=== PATIENT | female | born 1985 | race African-American/Black ===

== ENCOUNTER 2017-02-15 19:27 | Emergency (ER) | payer OTHER ==
[2017-02-15 19:40] VITALS: RESP 16
[2017-02-15] MEDS ORDERED: METOCLOPRAMIDE 5 MG/ML 2 ML VIAL IVP STA (20:18)
[2017-02-15] MEDS ORDERED: SODIUM CHLORIDE 0.9% 1,000 ML IV STA (20:18)
[2017-02-15] MEDS ORDERED: diphenhydrAMINE 50 MG/ML 1 ML VIAL IVP STA (20:18)
--- NOTE | 2017-02-15 20:20 | ED ---
Abdominal Pain HPI - General Chief Complaint: Abdominal Pain Stated Complaint: Abd Pain Time Seen by Provider: 02/15/17 19:54 Source: patient, RN notes reviewed, old records reviewed Mode of arrival: ambulatory Limitations: no limitations - History of Present Illness Initial Comments: His is 32-year-old feel presenting to [facility] chief complaint of dysuria for the past 2 days. She reports that her urinalysis had a foul swelling odor to it. She denies any vaginal discharge. She is currently 15 weeks . 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 Patient states that she's also had some cramping up towards her back. She reports she noticed blood in her urine. Denies any history of kidney stones. Patient states that she is also feeling fatigued and nauseated today. Denies any known fever but states she feels chilled. Patient is denying discharge or bleeding.Patient denies any recent fever, chills, shortness of breath, chest pain, nausea vomiting, numbness or tingling, constipation or diarrhea, headaches or visual changes, or any other current symptoms - Related Data Home Medications Medication Instructions Recorded Confirmed Zli-Clyk-Uksma Acid 1 cap PO DAILY 02/15/17 02/15/17 [-U Capsule (formulary)] Previous Rx's Medication Instructions Recorded Nitrofurantoin Monohyd/M-Cryst 100 mg PO Q12HR #14 cap 02/15/17 [Macrobid] Allergies Allergy/AdvReac Type Severity Reaction Status Date / Time amoxicillin [Amoxicillin] Allergy Rash/Hives Verified 02/15/17 20:05 ampicillin Allergy Rash/Hives Verified 02/15/17 20:05 Review of Systems ROS Statement: Those systems with pertinent positive or pertinent negative responses have been documented in the HPI. ROS Other: All systems not noted in ROS Statement are negative. Past Medical History Past Medical History: No Reported History Additional Past Medical History / Comment(s): PIH with previous History of Any Multi-Drug Resistant Organisms: None Reported Past Surgical History: Adenoidectomy, Tonsillectomy Additional Past Surgical History / Comment(s): pt states she was 4 yrs old at the time of T&A. states she also had tubes placed in her ears Past Anesthesia/Blood Transfusion Reactions: No Reported Reaction Past Psychological History: Depression Smoking Status: Never smoker Past Alcohol Use History: None Reported Past Drug Use History: None Reported - Past Family History Father Family Medical History: Hypertension General Exam - General Exam Comments Initial Comments: This is a well-appearing 32-year-old female. No acute distress. Limitations: no limitations General appearance: alert, in no apparent distress Head exam: Present: atraumatic, normocephalic, normal inspection Eye exam: Present: normal appearance, PERRL, EOMI. Absent: scleral icterus, conjunctival injection, periorbital swelling ENT exam: Present: normal exam, mucous membranes moist Neck exam: Present: normal inspection. Absent: tenderness, meningismus, lymphadenopathy Respiratory exam: Present: normal lung sounds bilaterally. Absent: respiratory distress, wheezes, rales, rhonchi, stridor Cardiovascular Exam: Present: regular rate, normal rhythm, normal heart sounds. Absent: systolic murmur, diastolic murmur, rubs, gallop, clicks GI/Abdominal exam: Present: soft, tenderness (Will superpubic tenderness.), normal bowel sounds. Absent: distended, guarding, rebound, rigid Extremities exam: Present: normal inspection, full ROM, normal capillary refill. Absent: tenderness, pedal edema, joint swelling, calf tenderness Back exam: Present: normal inspection, CVA tenderness (R), CVA tenderness (L) ( Bilateral CVA tenderness noted) Neurological exam: Present: alert, oriented X3, CN II-XII intact Psychiatric exam: Present: normal affect, normal mood Skin exam: Present: warm, dry, intact, normal color. Absent: rash Course Vital Signs 02/15/17 02/15/17 19:37 22:30 Temperature 99.1 F 97.9 F Pulse Rate 100 66 Respiratory 16 16 Rate Blood Pressure 133/81 102/70 O2 Sat by Pulse 98 100 Oximetry Medical Decision Making - Medical Decision Making Physical 32-year-old female chief complaint of dysuria for the past 2 days. She is currently 15 weeks . Ultrasound was able to detect heart tones. Baby appears stable. Patient received IV fluids and lab work obtained. Normal white count. Normal kidney function. Urinalysis is positive for signs of infection. Culture obtained. Patient was started on Macrobid and given a dose of emergency department. Ultrasound was negative for any signs of obstructing renal stones or hydroureter. Patient will be discharged with follow -up with her [employer] INST[employer]ER. Discussed Tylenol for pain and increase her fluid intake. Patient agrees treatment plan will comply. Return parameters were discussed. - Lab Data Result diagrams: 02/15/17 20:25 02/15/17 20:25 Lab Results 02/15/17 02/15/17 02/15/17 Range/Units 20:25 20:25 20:25 WBC 10.4 (3.8-10.6) k/uL RBC 4.11 (3.80-5.40) m/uL Hgb 10.8 L (11.4-16.0) gm/dL Hct 34.5 (34.0-46.0) % MCV 83.9 (80.0-100.0) fL MCH 26.2 (25.0-35.0) pg MCHC 31.2 (31.0-37.0) g/dL RDW 15.1 (11.5-15.5) % Plt Count 226 (150-450) k/uL Neutrophils % 63 % Lymphocytes % 26 % Monocytes % 4 % Eosinophils % 5 % Basophils % 0 % Neutrophils # 6.5 (1.3-7.7) k/uL Lymphocytes # 2.7 (1.0-4.8) k/uL Monocytes # 0.5 (0-1.0) k/uL Eosinophils # 0.5 (0-0.7) k/uL Basophils # 0.0 (0-0.2) k/uL Hypochromasia Slight Sodium 134 L (137-145) mmol/L Potassium 4.1 (3.5-5.1) mmol/L Chloride 107 (98-107) mmol/L Carbon Dioxide 18 L (22-30) mmol/L Anion Gap 9 mmol/L BUN 9 (7-17) mg/dL Creatinine 0.40 L (0.52-1.04) mg/dL Est GFR (MDRD) Af Amer >60 (>60 ml/min/1.73 sqM) Est GFR (MDRD) Non-Af >60 (>60 ml/min/1.73 sqM) Glucose 88 (74-99) mg/dL Calcium 8.8 (8.4-10.2) mg/dL Total Bilirubin 0.3 (0.2-1.3) mg/dL AST 19 (14-36) U/L ALT 22 (9-52) U/L Alkaline Phosphatase 63 (38-126) U/L Total Protein 6.3 (6.3-8.2) g/dL Albumin 3.4 L (3.5-5.0) g/dL Amylase 33 (30-110) U/L Lipase 74 (23-300) U/L Urine Color Yellow Urine Appearance Cloudy H (Clear) Urine pH 6.5 (5.0-8.0) Ur Specific [place] 1.024 (1.001-1.035) Urine Protein Trace H (Negative) Urine Glucose (UA) Negative (Negative) Urine Ketones Negative (Negative) Urine Blood Negative (Negative) Urine Nitrite Positive H (Negative) Urine Bilirubin Negative (Negative) Urine Urobilinogen 4.0 (<2.0) mg/dL Ur Leukocyte Esterase Moderate H (Negative) Urine RBC 4 (0-5) /hpf Urine WBC 39 H (0-5) /hpf Ur Squamous Epith Cells 4 (0-4) /hpf Urine Bacteria Many H (None) /hpf Hyaline Casts 11 H (0-2) /lpf Urine Mucus Rare H (None) /hpf - Radiology Data Radiology results: report reviewed Bilateral renal ultrasound was negative for any acute process. Disposition Clinical Impression: UTI in Disposition: HOME SELF-CARE Condition: Good Instructions: Urinary Tract Infection in (ED) Additional Instructions: Advised to rest, increase fluids. Take antibiotics as prescribed for the next week. 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 Return to the emergency department if any alarming signs or symptoms occur. Prescriptions: Nitrofurantoin Monohyd/M-Cryst [Macrobid] 100 mg PO Q12HR #14 cap Referrals: Hernan Izaguirre MD [Primary Care Provider] - 1-2 days Time of Disposition: 22:22
[2017-02-15] MEDS ORDERED: SODIUM CHLORIDE 0.9% 1,000 ML IV SCH (20:30)
[2017-02-15 20:50] LABS: Basophils % (A) 0 %; CHCM 31.2; Eosinophils # (A) 0.5 k/uL (0-0.7); Eosinophils % (A) 5 %; HCT 34.5 % (34.0-46.0); HDW 2.58; HGB 10.8 gm/dL (11.4-16.0); Hypochromasia Slight; Luc # (Auto) 0.15; Luc % (Auto) 1; Lymphocytes # (A) 2.7 k/uL (1.0-4.8); Lymphocytes % (A) 26 %; MCH 26.2 pg (25.0-35.0); MCHC 31.2 g/dL (31.0-37.0); MCV 83.9 fL (80.0-100.0); Mean Platelet Volume 7.5; Monocytes # (A) 0.5 k/uL (0-1.0); Monocytes % (A) 4 %; Neutrophils # (A) 6.5 k/uL (1.3-7.7); Neutrophils % (A) 63 %; RBC 4.11 m/uL (3.80-5.40); RDW 15.1 % (11.5-15.5); WBC 10.4 k/uL (3.8-10.6); WBC (Perox) 10.92
[2017-02-15 20:58] LABS: Appearance,Urine Cloudy (Clear); Bacteria,Urine Many /hpf; Bilirubin,Urine Negative (Negative); Glucose,Urine (UA) Negative (Negative); Ketones,Urine Negative (Negative); Leukocyte Esterase,Urine Moderate (Negative); Mucus,Urine Rare /hpf; Nitrite,Urine Positive (Negative); PH, Urine 6.5 (5.0-8.0); Particle Count 32440; Protein,Urine Trace (Negative); RBC,Urine 4 /hpf (0-5); Specific Gravity,Urine 1.024 (1.001-1.035); Squamous Epithelial Cell,Urine 4 /hpf (0-4); UA Billing (MACRO vs. MICRO) MICRO; WBC,Urine 39 /hpf (0-5)
[2017-02-15 21:02] LABS: ALT 22 U/L (9-52); AST 19 U/L (14-36); Alkaline Phosphatase 63 U/L (38-126); Amylase 33 U/L (30-110); Anion Gap 9 mmol/L; Blood Urea Nitrogen 9 mg/dL (7-17); Calcium 8.8 mg/dL (8.4-10.2); Carbon Dioxide 18 mmol/L (22-30); Chloride 107 mmol/L (98-107); Glucose 88 mg/dL (74-99); Non-African American GFR(MDRD) >60 (>60 ml/min/1.73 sqM); Potassium 4.1 mmol/L (3.5-5.1); Sodium 134 mmol/L (137-145); Total Bilirubin 0.3 mg/dL (0.2-1.3); Total Protein 6.3 g/dL (6.3-8.2)
[2017-02-15] MEDS ORDERED: NITROFURANTOIN MONOHYD/M-CRYST 100 MG CAP PO STA (21:34)
--- NOTE | 2017-02-15 21:41 | US ---
EXAMINATION TYPE: US renals and bladder DATE OF EXAM: 02/15/2017 COMPARISON: NONE CLINICAL HISTORY: Pain. EXAM MEASUREMENTS: Right Kidney: 11.7 x 4.9 5.6 cm Left Kidney: 10.9 x 6.0 x 5.4 cm Right Kidney: No hydronephrosis or masses seen Left Kidney: No hydronephrosis or masses seen Bladder: wnl Bilateral Jets seen: No There is no evidence for hydronephrosis at this point in time. No nephrolithiasis is seen. No jose s are identified. The urinary bladder is anechoic. Neither ureteral jet was visualized. IMPRESSION: NORMAL RENAL ULTRASOUND.
[2017-02-15 22:31] VITALS: BP 102/70; PULSE 66; TEMP 97.9
--- NOTE | 2017-02-16 14:22 | US ---
EXAMINATION TYPE: US OB limited DATE OF EXAM: 02/16/2017 COMPARISON: NONE CLINICAL HISTORY: CHECK HEARTRATE. EXAM PERFORMED: Transabdominal (TA) GESTATIONAL AGE / DATING No growth performed on today?s study per ordering physician SURVEY Exam done for heart rate only. Large body habitus HEART RATE: 176 bpm Exam performed by Ebony Bush IMPRESSION: Cardiac rate as noted.
== END 2017-02-15 22:30 | disposition home or self-care (01) ==
LOC: EC 19:27
DX: O23.42 Unspecified infection of urinary tract in pregnancy, second trimester (principal); Z88.0 Allergy status to penicillin; Z88.1 Allergy status to other antibiotic agents; Z3A.15 15 weeks gestation of pregnancy; Z79.899 Other long term (current) drug therapy
CPT/HCPCS: 99284 ×2; 96374 ×2; 96375 ×2; 96361 ×3; 36415; 80053; 82150; 83690; 85025; 81001; 87086; 87077; 87186; 76815; 76770; J1200; J2765

== ENCOUNTER 2017-08-14 08:10 | Inpatient (IN) | payer OTHER ==
[2017-08-14] MEDS ORDERED: LACTATED RINGERS 1,000 ML IV ONE (09:14)
[2017-08-14] MEDS ORDERED: CITRIC ACID-SODIUM CITRATE 15 ML CUP PO ONE (09:14)
[2017-08-14] MEDS ORDERED: CLINDAMYCIN 900 MG in DEXTROSE 5% IN WATER 50 ML IVPB STA ×2 (09:19)
[2017-08-14] MEDS ORDERED: TERBUTALINE 1 MG/ML VIAL SQ PRN (10:33)
[2017-08-14] MEDS ORDERED: CARBOPROST TROMETHAMINE 250 MCG/ML 1 ML AMP IM PRN (10:33)
[2017-08-14] MEDS ORDERED: METHYLERGONOVINE 0.2 MG/ML 1 ML AMP IM PRN (10:33)
[2017-08-14] MEDS ORDERED: OXYTOCIN 10 UNIT/ML 1 ML VIAL IM PRN (10:33)
[2017-08-14] MEDS ORDERED: LIDOCAINE 1% (PF) 10 MG/ML (30 ML SDV) SQ PRN (10:33)
[2017-08-14] MEDS: LACTATED RINGERS 1,000 ML IV SCH ×3 (10:40→18:26)
[2017-08-14] MEDS ORDERED: BUTORPHANOL 1 MG/ML 1 ML VIAL IV PRN (10:43)
--- NOTE | 2017-08-14 10:43 | P.HPOB ---
History of Present Illness H&P Date: 08/14/17 Chief Complaint: 39+ weeks, induction of labor The patient is a 32-year-old 9 para 7017 admitted at 39-3/7 as established by a 17 week ultrasound. She was initially admitted for primary low -transverse section having been found to have the fetus in breech presentation in the office last week. She additionally had requested intraoperative tubal ligation. Upon admission to the floor today, bedside ultrasound confirms vertex presentation which was further confirmed by vaginal exam. She was presented with options and agrees to undergo elective induction of labor today. Her has been otherwise uncomplicated and group B strep status is negative. Obstetrical history: 9 para 7017 was 7 term vaginal deliveries without complications. Current statistics are listed in history present illness. EDC of 08/18/2017 was established by 17 week ultrasound. Laboratory workup demonstrates a blood type of A+ with a negative antibody screen. Rubella status is immune. All other laboratory workup was within normal limits. Early Glucola as well as second trimester Glucola were within normal limits. Group B strep status is negative. 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 Review of Systems Review of systems is confined to history of present illness. Past Medical History Past Medical History: No Reported History Additional Past Medical History / Comment(s): PIH with previous History of Any Multi-Drug Resistant Organisms: None Reported Past Surgical History: Adenoidectomy, Tonsillectomy Additional Past Surgical History / Comment(s): pt states she was 4 yrs old at the time of T&A. states she also had tubes placed in her ears Past Anesthesia/Blood Transfusion Reactions: No Reported Reaction Smoking Status: Never smoker - Past Family History Father Family Medical History: Hypertension Medications and Allergies Home Medications Medication Instructions Recorded Confirmed Type Kdh-Ldcv-Enmuo Acid 1 cap PO DAILY 02/15/17 08/14/17 History [-U Capsule (formulary)] Allergies Allergy/AdvReac Type Severity Reaction Status Date / Time amoxicillin [Amoxicillin] Allergy Rash/Hives Verified 08/14/17 10:16 ampicillin Allergy Rash/Hives Verified 08/14/17 10:16 Exam In general, this is a moderately obese female in no acute distress. Her heart has a regular rhythm and rate without murmur. Her lungs are clear to auscultation bilaterally in all ramos. Her abdomen is gravid, nondistended, has normal active bowel sounds, is soft, nontender, and without any palpable masses aside from uterine fundus. Bedside ultrasound by myself demonstrates the fetus to be in vertex presentation. Her extremities without any cyanosis, clubbing, or significant edema and are nontender to palpation bilaterally. Digital cervical examination demonstrates her cervix to be 1-2 cm dilated, 40% effaced, the vertex in presentation at -2-3 station. Assessment and Plan (1) Term Current Visit: Yes Status: Acute Code(s): Z34.80 - ENCOUNTER FOR SUPRVSN OF NORMAL , UNSP TRIMESTER SNOMED Code(s): 44195586 Plan: After finding the previously breech fetus in vertex presentation, options were discussed with the patient for induction directly or continued observation with induction next week should labor not ensue. Patient has chosen to have elective induction today. Artificial rupture of membranes will be carried out and she will have close maternal and surveillance. Expectant management will be practiced. She is a good candidate for either IV or epidural analgesia , whichever she may choose.
[2017-08-14] MEDS ORDERED: OXYTOCIN 20 UNITS/1000 ML NS 1,000 ML IV SCH ×2 (10:45→20:45)
[2017-08-14 10:56] LABS: Basophils % (A) 0 %; Eosinophils # (A) 0.3 k/uL (0-0.7); Eosinophils % (A) 3 %; HGB 10.2 gm/dL (11.4-16.0); Hypochromasia Moderate; Lymphocytes # (A) 2.1 k/uL (1.0-4.8); Lymphocytes % (A) 20 %; MCH 23.9 pg (25.0-35.0); MCHC 30.9 g/dL (31.0-37.0); MCV 77.4 fL (80.0-100.0); Mean Platelet Volume 9.1; Monocytes # (A) 0.5 k/uL (0-1.0); Monocytes % (A) 5 %; Neutrophils # (A) 7.5 k/uL (1.3-7.7); Neutrophils % (A) 71 %; Platelet Count 216 k/uL (150-450); RBC 4.27 m/uL (3.80-5.40); RDW 14.9 % (11.5-15.5); WBC 10.5 k/uL (3.8-10.6)
[2017-08-14 11:53] VITALS: BMI 47.0
[2017-08-14] MEDS ORDERED: BUPIVACAINE (PF) 0.25% 30 ML VIAL ONE (13:44)
[2017-08-14] MEDS ORDERED: SODIUM CHLORIDE 0.9% 100 ML BAG ONE (13:44)
[2017-08-14] MEDS ORDERED: fentaNYL (PF) 50 MCG/ML 5 ML AMP ONE (13:44)
[2017-08-14] MEDS ORDERED: BUPIVACAINE (PF) 0.25% 25 ML, fentaNYL (PF) 200 MCG in SODIUM CHLORIDE 0.9% 71 ML EPIDURAL ONE (14:44)
[2017-08-14] MEDS ORDERED: HYDROCORTISONE 2.5% RECTAL CREAM 30 GM TUBE RECTAL PRN (20:33)
[2017-08-14] MEDS ORDERED: diphenhydrAMINE 25 MG CAP PO PRN (20:33)
[2017-08-14] MEDS ORDERED: diphenhydrAMINE 50 MG/ML 1 ML VIAL IVP PRN ×2 (20:33)
[2017-08-14] MEDS ORDERED: Acetaminophen-Codeine 300-30mg TAB PO PRN ×2 (20:33)
[2017-08-14] MEDS ORDERED: ZOLPIDEM 5 MG TAB PO PRN (20:33)
[2017-08-14] MEDS ORDERED: BENZOCAINE/MENTHOL SPRAY 1 GM/SPRAY AEROSOL TOPICAL PRN (20:33)
[2017-08-14] MEDS ORDERED: WITCH HAZEL 1 EACH MED..PAD TOPICAL PRN (20:33)
[2017-08-14] MEDS ORDERED: LANOLIN CREAM 5 GM TUBE TOPICAL PRN (20:33)
[2017-08-14] MEDS ORDERED: SIMETHICONE 80 MG CHEWABLE PO PRN (20:33)
[2017-08-14] MEDS ORDERED: ACETAMINOPHEN TAB 325 MG TAB PO PRN (20:33)
[2017-08-14] MEDS ORDERED: diphenhydrAMINE 50 MG CAP PO PRN (20:33)
--- NOTE | 2017-08-14 20:38 | P.PROBDLV ---
Vaginal Delivery Note - . Vaginal Delivery Note: The patient is a 32-year-old 9 para 11/11/2006 initially admitted for primary section secondary to breech presentation found in the office last week. Bedside ultrasound performed upon admission demonstrates the fetus to be in vertex presentation. As a result, the patient opted to undergo elective induction then had Pitocin augmentation started as well as artificial rupture of membranes demonstrating clear fluid. She had an epidural catheter placed fairly early in the labor process and progressed over several hours to the active phase of labor. She then progressed fairly quickly through the active phase of labor to complete and 0 station. She pushed over the course of approximately 1 hour to a normal spontaneous vaginal delivery of a viable 7 lbs. 14 oz. baby girl with Apgars of 9 at 1 minute and 9 at 5 minutes delivered in the direct occiput posterior and brow presentation. The placenta was delivered spontaneously, intact, and grossly normal with a grossly normal centrally inserted three-vessel cord. There are no lacerations of the perineum , vagina, or cervix. Estimated blood loss for the case is approximately 150 mL. There are no complications. All sponge, instrument, and needle counts were correct. Both mother and infant are resting comfortably in recovery.
[2017-08-14] MEDS: IBUPROFEN 600 MG TAB PO PRN (20:46)
[2017-08-15] MEDS: IBUPROFEN 600 MG TAB PO PRN ×3 (08:19→22:17)
[2017-08-15] MEDS: SENNOSIDES-DOCUSATE SODIUM 1 EACH TAB PO SCH ×2 (08:19→21:12)
--- NOTE | 2017-08-15 12:04 | P.PNOBGVD ---
Subjective - Subjective Patient reports: Reports appetite normal, Reports voiding normally, Reports pain well controlled, Reports ambulating normally : doing well Objective - Latest Vital Signs Latest vital signs: Vital Signs Temp Pulse Resp BP Pulse Ox 08/15/17 12:00 97.9 F 84 18 118/73 97 08/15/17 08:00 97.7 F 86 18 128/74 98 08/15/17 04:00 98.0 F 77 16 124/70 08/15/17 00:00 98.4 F 94 16 125/82 08/14/17 22:30 97.3 F L 98 16 115/62 08/14/17 22:00 93 16 102/60 08/14/17 21:30 100 16 133/66 08/14/17 21:15 97 16 127/63 08/14/17 21:00 98 16 123/61 08/14/17 20:45 98 16 127/77 08/14/17 20:30 98.2 F 100 16 126/69 Intake and Output 08/14/17 08/15/17 08/15/17 22:59 06:59 14:59 Intake Total 28.6 Balance 28.6 Intake: Intake, IV Titration 28.6 Amount Oxytocin 20 Units/1000 ml 28.6 Ns 1,000 ml @ 1 MILLIUNIT/MIN 3 mls/hr IV .Q24H HECTOR Rx#:[id number] Other: # Voids 1 1 1 - Exam Extremities: Present: normal Abdomen: Present: normal appearance, soft Uterus: Present: normal, firm (tonic and NT around umbilicus) Assessment and Plan (1) Term Current Visit: Yes Status: Acute Code(s): Z34.80 - ENCOUNTER FOR SUPRVSN OF NORMAL , UNSP TRIMESTER SNOMED Code(s): 72218972 (2) Normal spontaneous vaginal delivery Current Visit: Yes Status: Acute Code(s): O80 - ENCOUNTER FOR FULL-TERM UNCOMPLICATED DELIVERY SNOMED Code(s): 96222909 Plan: Continue routine post- care, being held for one more day. Anticipate d/c home tomorrow.
--- NOTE | 2017-08-16 08:28 | P.DS ---
Providers Date of admission: 08/14/17 10:01 Expected date of discharge: 08/16/17 Attending physician: Brando Calvillo Primary care physician: Hernan Izaguirre - Discharge Diagnosis(es) (1) Normal spontaneous vaginal delivery Current Visit: Yes Status: Acute (2) Term Current Visit: Yes Status: Acute Hospital Course: This is a very pleasant 32-year-old 9 para 7017 that was admitted at 39- 3/7 weeks as established by 17 week ultrasound. She was initially in a breech presentation but on exam today was vertex. Ultrasound did confirm vertex presentation. Patient then agreed to an elective induction of labor secondary to first sex presentation. She was 1-2 cm initially on exam amniotomy was performed and Pitocin induction of labor was begun. Patient pressed slowly through labor eventually getting an epidural and had a normal spontaneous vaginal delivery of a viable female infant weight 7 lbs. 14 oz. Apgars of 9 and 9 at one and 5 minutes respectively. Patient's course has been uneventful. She is ambulating and voiding without difficulty she is tolerating a regular diet without nausea or vomiting. She states her pain is controlled with oral Motrin. She denies any concerns and wishes discharge home. Plan - Discharge Summary Discharge Rx Participant: Yes New Discharge Prescriptions: No Action Oct-Athz-Cdrgw Acid [-U Capsule (formulary)] 1 cap PO DAILY Discharge Medication List Oxd-Grmc-Ufrrq Acid [-U Capsule (formulary)] 1 cap PO DAILY 09/27 [History] Follow up Appointment(s)/Referral(s): Brando Calvillo MD [STAFF PHYSICIAN] - 6 Weeks Patient Instructions/Handouts: Vaginal Delivery (DC)
[2017-08-16 09:13] VITALS: BP 116/75; PULSE 90; RESP 18; TEMP 98.4
[2017-08-16] MEDS: SENNOSIDES-DOCUSATE SODIUM 1 EACH TAB PO SCH (11:48)
== END 2017-08-16 11:50 | disposition home or self-care (01) | DRG 775 ==
LOC: 4FBP 10:01 → OBSVTOIN 10:01
PROVIDERS: ADMIT Obstetrics & Gynecology; ATTEND Obstetrics & Gynecology
PROC: 10E0XZZ Delivery of Products of Conception, External Approach (ICD-10-PCS; principal; 2017-08-14)
PROC: 3E033VJ Introduction of Other Hormone into Peripheral Vein, Percutaneous Approach (ICD-10-PCS; 2017-08-14)
PROC: 10907ZC Drainage of Amniotic Fluid, Therapeutic from Products of Conception, Via Natural or Artificial Opening (ICD-10-PCS; 2017-08-14)
PROC: 00HU33Z Insertion of Infusion Device into Spinal Canal, Percutaneous Approach (ICD-10-PCS; 2017-08-14)
PROC: 3E0R3NZ Introduction of Analgesics, Hypnotics, Sedatives into Spinal Canal, Percutaneous Approach (ICD-10-PCS; 2017-08-14)
DX: O32.3XX0 Maternal care for face, brow and chin presentation, not applicable or unspecified (principal); Z37.0 Single live birth; Z82.49 Family history of ischemic heart disease and other diseases of the circulatory system; Z88.1 Allergy status to other antibiotic agents; Z86.19 Personal history of other infectious and parasitic diseases; Z90.89 Acquired absence of other organs; Z3A.39 39 weeks gestation of pregnancy
CPT/HCPCS: 85025; 86850; 86900; 86901; 88307

== ENCOUNTER → 2017-10-06 | Outpatient (CLI) | payer OTHER ==
[2017-10-06 10:09] LABS: Basophils # (A) 0.1 k/uL (0-0.2); Basophils % (A) 1 %; Eosinophils # (A) 0.6 k/uL (0-0.7); Eosinophils % (A) 8 %; HCT 38.3 % (34.0-46.0); HGB 11.9 gm/dL (11.4-16.0); Hypochromasia Marked; Lymphocytes # (A) 2.4 k/uL (1.0-4.8); Lymphocytes % (A) 29 %; MCHC 31.1 g/dL (31.0-37.0); MCV 80.4 fL (80.0-100.0); Mean Platelet Volume 7.8; Monocytes # (A) 0.5 k/uL (0-1.0); Monocytes % (A) 6 %; Neutrophils # (A) 4.5 k/uL (1.3-7.7); Neutrophils % (A) 56 %; Platelet Count 237 k/uL (150-450); RBC 4.77 m/uL (3.80-5.40); RDW 15.7 % (11.5-15.5); WBC 8.1 k/uL (3.8-10.6)
== END | disposition home or self-care (01) ==
LOC: LABPAT 09:27
PROVIDERS: ATTEND Obstetrics & Gynecology
DX: Z01.812 Encounter for preprocedural laboratory examination (principal)
CPT/HCPCS: 36415; 85025

== ENCOUNTER 2017-10-09 09:41 | Day surgery (SDC) | payer OTHER ==
[2017-10-02 09:55] VITALS: BMI 43.1
[~2017-10-09 09:41] MED LIST: DEXAMETHASONE SOD PHOSPHATE 10 MG/ML 1 ML VIAL IV ONE; LACTATED RINGERS 1,000 ML IV SCH; LIDOCAINE 1% 20 ML VIAL (10MG/ML) FOR IV START INTRADERMA PRN; MIDAZOLAM 2 MG/2 ML VIAL IV PRN; Pre Op ABX Message 1 EACH MISC MISCELLANE ONE; SCOPOLAMINE 1.5MG/72HR PATCH TRANSDERM ONE; fentaNYL (PF) 50 MCG/ML 2 ML AMP IV PRN
[2017-10-09 10:17] VITALS: RESP 16
[2017-10-09] MEDS ORDERED: BUPIVACAINE (PF) 0.5% 30 ML VIAL SQ ONE ×2 (10:22→11:31)
[2017-10-09] MEDS ORDERED: ONDANSETRON 4 MG/2 ML VIAL IVP ONE (10:30)
[2017-10-09] MEDS ORDERED: ONDANSETRON 4 MG/2 ML VIAL IVP PRN (10:57)
[2017-10-09] MEDS ORDERED: IBUPROFEN 600 MG TAB PO PRN (10:57)
[2017-10-09] MEDS ORDERED: Acetaminophen-Codeine 300-30mg TAB PO PRN ×2 (10:57)
[2017-10-09] MEDS ORDERED: SIMETHICONE 80 MG CHEWABLE PO PRN (10:57)
[2017-10-09] MEDS ORDERED: diphenhydrAMINE 50 MG/ML 1 ML VIAL IVP PRN (10:57)
[2017-10-09] MEDS ORDERED: METOCLOPRAMIDE 5 MG/ML 2 ML VIAL IVP PRN (10:57)
[2017-10-09] MEDS ORDERED: KETOROLAC 30 MG/ML 1 ML VIAL IVP PRN (10:57)
[2017-10-09] MEDS ORDERED: GLYCOPYRROLATE 0.2 MG/ML 2 ML VIAL ONE (10:58)
[2017-10-09] MEDS ORDERED: MIDAZOLAM 2 MG/2 ML VIAL ONE (10:58)
[2017-10-09] MEDS ORDERED: SUCCINYLCHOLINE CHLORIDE 100 MG/5 ML SYR IV ONE (10:58)
[2017-10-09] MEDS ORDERED: LIDOCAINE 1% INJ 10MG/ML (20 ML MDV) ONE (10:58)
[2017-10-09] MEDS ORDERED: NEOSTIGMINE 1 MG/ML 10 ML VIAL ONE (10:58)
[2017-10-09] MEDS ORDERED: ROCURONIUM BROMIDE 10 MG/ML 10 ML VIAL IV ONE (10:58)
[2017-10-09] MEDS ORDERED: fentaNYL (PF) 50 MCG/ML 2 ML AMP ONE (10:58)
[2017-10-09] MEDS ORDERED: PROPOFOL 10 MG/ML 20 ML VIAL IV ONE (10:58)
[2017-10-09] MEDS ORDERED: KETOROLAC 30 MG/ML 1 ML VIAL ONE (10:58)
[2017-10-09] MEDS ORDERED: LACTATED RINGERS 1,000 ML IV SCH (11:00)
[2017-10-09] MEDS ORDERED: LACTATED RINGERS 1,000 ML IV ONE (11:31)
--- NOTE | 2017-10-09 11:38 | P.OP ---
Date of Procedure: 10/09/17 Preoperative Diagnosis: #1. Multiparity #2. Undesired fertility Postoperative Diagnosis: Same Anesthesia: ADRIÁNA Surgeon: Brando Calvillo Estimated Blood Loss (ml): 5 IV fluids (ml): 800 Urine output (ml): 100 Pathology: none sent Condition: stable Disposition: PACU Operative Findings: Preoperative pelvic examination demonstrated a 4-5 week midplane to slightly retroverted mobile normal shaped uterus with normal adnexa bilaterally. Intraoperatively, these findings were confirmed. The uterus, tubes, and bilateral ovaries were entirely normal to inspection. There is no evidence of any metria versus in the pelvis nor any other pathology noted. A Filshie clip was placed firmly across the isthmic portion of both tubes. There was some omental scarring over the area where the appendix might have been found. The liver and diaphragm appeared normal as did the remainder of the small and large bowel. Description of Procedure: The patient was prepped and draped in usual fashion after general endotracheal anesthesia was administered by the anesthesiologist. A speculum was placed after draining the bladder approximate 100 mL of clear schuyler urine. The anterior lip of the cervix was grasped with a single-tooth tenaculum and a kroner uterine manipulator was applied. There was not a significant amount of descensus. Attention was turned to the abdomen where a 5 mm incision was made in a vertical fold of the umbilicus allowing insertion of a 5 mm optical trocar under direct visualization without difficulty. A pneumoperitoneum was infused. Trendelenburg positioning was utilized to sweep much of the bowel from the pelvis. A site was selected approximately 4-5 cm above the pubic symphysis in the midline where an 8 mm incision was made in the transverse plane allowing insertion of an 8 mm trocar under direct vision station without difficulty. The blunt probe and Trendelenburg were further utilized to sweep loss for the pelvis with the findings as noted above. Once it was determined that there was no pathology, the probe was replaced with a Filshie clip applicator was utilized to firmly place a Filshie clip across the entire thickness of the isthmic portion of the right fallopian tube approximately 2-3 cm from the cornu. A similar operation was carried out on the left side without difficulty. Expiration of the upper abdomen demonstrated normal findings with the exception of some mild omental adhesions to the anterior abdominal wall in the right lower quadrant over the area where the appendix might live. After finding no further pathology or or concerning findings, the pneumoperitoneum was evacuated through the 2 trochars which were then removed without difficulty. The skin was closed with interrupted subcuticular stitches of 4-0 Vicryl and then infused with a total of 10 mL of half percent Marcaine without epinephrine equally divided between the 2 incision sites. Estimated blood loss for the case was less than 5 mL. There were no complications. All sponge, instrument, and needle counts were correct. The patient tolerated the procedure well and proceeded to the recovery room in stable condition.
[2017-10-09] MEDS ORDERED: HYDROmorphone 0.5 MG/0.5 ML SYRINGE IVP ONE ×2 (11:55→12:21)
[2017-10-09 12:14] VITALS: TEMP 97.4
[2017-10-09] MEDS ORDERED: PROMETHAZINE INJ 25 MG/ML 1 ML VIAL IVPB ONE (13:05)
[2017-10-09 13:35] VITALS: BP 121/70
[2017-10-09 13:36] VITALS: PULSE 63
== END 2017-10-09 14:17 | disposition home or self-care (01) ==
LOC: OR 09:41
PROVIDERS: ATTEND Obstetrics & Gynecology
DX: Z30.2 Encounter for sterilization (principal); F31.9 Bipolar disorder, unspecified; E66.01 Morbid (severe) obesity due to excess calories; Z68.41 Body mass index [BMI] 40.0-44.9, adult; Z88.0 Allergy status to penicillin
CPT/HCPCS: 81025; 58671; J2250; J1100; J2550; J2710; J2405; J2001; J3010; J1885; J0330; J2704; J1170

== ENCOUNTER → 2020-02-19 | Outpatient (CLI) | payer BC, OTHER ==
[2020-02-19 12:38] VITALS: BMI 44.8
[2020-02-19 13:19] VITALS: BP 124/85; PULSE 82; RESP 18; TEMP 99.1
--- NOTE | 2020-02-19 17:28 | P.HPBAR ---
Bariatric H&P - History & Physicial H&P Date: 02/19/20 History & Physicial: Visit/CC: initial visit Patient initial contact: Initial weight: Initial weight in pounds: Height: 5 ft 7.4 in Initial BMI: Last weight: Current weight: 131.451 kg Current weight in pounds: 289.80 Current BMI: 44.8 [place] body weight (based on NIH guidelines): 62.142 kg Excess body weight loss: The patient is a 35 year-old F who presents for Bariatric Assessment. A 35-year-old female who presents to the bariatric center as a new evaluation. Patient interested in sleeve gastrectomy. Otherwise healthy. No history of smoking. No GERD, no DVT history. Patient not taking any medications currently. Patient has a thyroid mass and is having a thyroid biopsy next week. No significant surgical history and no abdominal surgeries in the past. Patient's heaviest weight was 306. Currently at 289. BMI 44.8. No history of EGD. Review of Systems The patient denies any acute changes in vision or hearing, no dysphagia or odynophagia, no chest pain or shortness of breath, no dysuria or hematuria, no headache, no runny nose, no rectal bleeding or melena, no unexplained weight loss Past Medical History Past Medical History: No Reported History Additional Past Medical History / Comment(s): PIH with previous History of Any Multi-Drug Resistant Organisms: None Reported Past Surgical History: Adenoidectomy, Ear Surgery, Tonsillectomy Additional Past Surgical History / Comment(s): tubes in ears Past Anesthesia/Blood Transfusion Reactions: No Reported Reaction Past Psychological History: Bipolar, Depression Additional Psychological History / Comment(s): no meds Smoking Status: Never smoker Past Alcohol Use History: None Reported Past Drug Use History: None Reported - Past Family History Father Family Medical History: Hypertension Surgical - Exam Vital Signs Temp Pulse Resp BP 99.1 F 82 18 124/85 02/19/20 12:24 02/19/20 12:24 02/19/20 12:24 02/19/20 12:24 Physical exam: General: Well-developed, well-nourished HEENT: Normocephalic, sclerae nonicteric Abdomen: Nontender, nondistended Extremities: No edema Neuro: Alert and oriented Bariatric Assessment & Plan (1) Morbid obesity with BMI of 40.0-44.9, adult Narrative/Plan: 35-year-old female with morbid obesity. Risks and benefits of sleeve gastrectomy and gastric bypass reviewed in detail. Patient remains interested in sleeve gastrectomy. Patient is 2 out of 7 months into her supervised weight loss. Will plan EGD and approximate 4 months. Follow up in the bariatric clinic after that. Status: Acute Bariatric Checklist Checklist: Plan: Checklist: EGD: 1. Hiatal hernia: 2. H. Pylori: HgbA1c: Vitamin D: Smoking: Never smoker Primary care physician referral: Dr Huynh Psychiatry clearance: Cardiology clearance: Sleep study: Diet journal: VTE risk score: VTE risk level: Rehab needs at discharge:
== END | disposition home or self-care (01) ==
LOC: BARWHC3 12:15
PROVIDERS: ATTEND Surgery
DX: E66.01 Morbid (severe) obesity due to excess calories (principal); Z68.41 Body mass index [BMI] 40.0-44.9, adult
CPT/HCPCS: 99211

== ENCOUNTER → 2020-07-28 | Outpatient (CLI) | payer BC, OTHER | END | disposition home or self-care (01) | LOC: RADECHMAIN 11:54 | PROVIDERS: ATTEND Family Medicine | DX: R00.2 Palpitations (principal) | CPT/HCPCS: 93270 ==

== ENCOUNTER → 2024-11-17 | Outpatient (CLI) | payer OTHER ==
--- NOTE | 2024-11-17 11:56 | XR ---
EXAMINATION TYPE: XR hand complete RT DATE OF EXAM: 11/17/2024 11:49 AM INDICATION: Patient age:Female; 39 years old; Reason for study: S61.451A OPEN BITE OF RIGHT HAND, INITIAL ENCOUNTE; PHH. pain COMPARISON: None TECHNIQUE: Frontal, lateral and oblique views of the right hand were obtained. FINDINGS: Normal alignment of the visualized joints. No acute osseous pathology is identified. No e vidence of soft tissue swelling. No unexpected radiopaque foreign body. IMPRESSION: No acute osseous pathology. [facility], , 11/17/2024 11:54 AM
== END | disposition home or self-care (01) ==
LOC: RADXRMAIN 11:27 → MERGE 11:27
PROVIDERS: ATTEND Emergency Medicine
DX: S61.451A Open bite of right hand, initial encounter (principal)